=== PATIENT | female | born 1980 ===

== ENCOUNTER 2018-01-19 15:15 | Inpatient (IN) | payer OTHER ==
[~2018-01-19] VITALS: Ht 162.6 cm; Wt 67.6 kg
[2018-02-06] MEDS ORDERED: PRENATAL TABLE1 EAC2 PO (09:29)
== END 2018-02-09 11:04 | DRG 775 ==
LOC: LDR 02-06 08:03 → OB/GYN 02-07 11:52 → LDR 02-07 15:15 → OB/GYN 02-09 11:04
PROC: 10E0XZZ Delivery of Products of Conception, External Approach (ICD-10-PCS; principal; 2018-02-07)
PROC: 0KQM0ZZ Repair Perineum Muscle, Open Approach (ICD-10-PCS; 2018-02-07)
PROC: 0W8NXZZ Division of Female Perineum, External Approach (ICD-10-PCS; 2018-02-07)
PROC: 3E0P7VZ Introduction of Hormone into Female Reproductive, Via Natural or Artificial Opening (ICD-10-PCS; 2018-02-07)
PROC: 3E033VJ Introduction of Other Hormone into Peripheral Vein, Percutaneous Approach (ICD-10-PCS; 2018-02-07)
PROC: 4A033R1 Measurement of Arterial Saturation, Peripheral, Percutaneous Approach (ICD-10-PCS; 2018-02-07)
PROC: 4A1HXCZ Monitoring of Products of Conception, Cardiac Rate, External Approach (ICD-10-PCS; 2018-02-07)
DX: O70.1 Second degree perineal laceration during delivery (principal); Z37.0 Single live birth; O99.824 Streptococcus B carrier state complicating childbirth; Z3A.39 39 weeks gestation of pregnancy

== ENCOUNTER 2018-01-26 14:51 | Outpatient (CLI) | payer OTHER | END 2018-01-26 16:00 | disposition home or self-care (01) | LOC: NST 14:51 | DX: Z34.83 Encounter for supervision of other normal pregnancy, third trimester (principal) ==

== ENCOUNTER 2018-02-02 14:01 | Outpatient (CLI) | payer OTHER | END 2018-02-02 16:38 | disposition home or self-care (01) | LOC: NST 14:01 | DX: Z34.83 Encounter for supervision of other normal pregnancy, third trimester (principal) ==

== ENCOUNTER 2023-01-27 14:16 | Outpatient (CLI) | payer OTHER ==
[~2023-01-27 14:16] MED LIST: PRENATAL TABLE1 EAC2 PO
== END 2023-01-27 15:46 | disposition home or self-care (01) ==
LOC: NST 14:16
PROVIDERS: ATTEND Obstetrics & Gynecology Maternal & Fetal Medicine
DX: Z34.83 Encounter for supervision of other normal pregnancy, third trimester (principal)

== ENCOUNTER 2023-02-11 14:10 | Outpatient (CLI) | payer OTHER | END 2023-02-11 15:39 | disposition home or self-care (01) | LOC: NST 14:10 | PROVIDERS: ATTEND Obstetrics & Gynecology Maternal & Fetal Medicine | DX: Z34.83 Encounter for supervision of other normal pregnancy, third trimester (principal) ==

== ENCOUNTER 2023-02-26 14:11 | Outpatient (CLI) | payer OTHER | END 2023-02-26 14:53 | disposition home or self-care (01) | LOC: NST 14:11 | PROVIDERS: ATTEND Obstetrics & Gynecology Maternal & Fetal Medicine | DX: Z34.83 Encounter for supervision of other normal pregnancy, third trimester (principal) ==

== ENCOUNTER 2023-03-11 13:48 | Outpatient (CLI) | payer OTHER | END 2023-03-11 15:21 | disposition home or self-care (01) | LOC: NST 13:48 | PROVIDERS: ATTEND Obstetrics & Gynecology Maternal & Fetal Medicine | DX: Z34.83 Encounter for supervision of other normal pregnancy, third trimester (principal) ==

== ENCOUNTER 2023-03-24 09:46 | Outpatient (CLI) | payer OTHER | END 2023-03-24 10:36 | disposition home or self-care (01) | LOC: NST 09:46 | PROVIDERS: ATTEND Obstetrics & Gynecology Maternal & Fetal Medicine | DX: Z34.83 Encounter for supervision of other normal pregnancy, third trimester (principal) ==

== ENCOUNTER 2023-03-24 13:57 | Inpatient (IN) | payer OTHER ==
[~2023-03-24] VITALS: Ht 160 cm; Wt 75.7 kg
[2023-03-25] MEDS ORDERED: FOLIC ACID0.8 M1 PO (16:39)
[2023-03-25] MEDS ORDERED: PRENATAL TABLE1 EAC1 PO (16:39)
[2023-03-25] MEDS ORDERED: PROPANOLOL PO (16:41)
[2023-03-25] MEDS ORDERED: PTU PO (16:42)
== END 2023-03-28 16:44 | disposition home or self-care (01) | DRG 785 ==
LOC: OB/GYN 03-25 13:01 → LDR 03-25 15:19 → OB/GYN 03-26 19:17
PROVIDERS: ADMIT Obstetrics & Gynecology Maternal & Fetal Medicine; ATTEND Obstetrics & Gynecology Maternal & Fetal Medicine
PROC: 4A1HXCZ Monitoring of Products of Conception, Cardiac Rate, External Approach (ICD-10-PCS; 2023-03-25)
PROC: 3E0P7VZ Introduction of Hormone into Female Reproductive, Via Natural or Artificial Opening (ICD-10-PCS; 2023-03-25)
PROC: 0UB70ZZ Excision of Bilateral Fallopian Tubes, Open Approach (ICD-10-PCS; 2023-03-26)
PROC: 3E033VJ Introduction of Other Hormone into Peripheral Vein, Percutaneous Approach (ICD-10-PCS; 2023-03-26)
PROC: 10D00Z1 Extraction of Products of Conception, Low, Open Approach (ICD-10-PCS; principal; 2023-03-26 16:00)
DX: O62.1 Secondary uterine inertia (principal); O99.284 Endocrine, nutritional and metabolic diseases complicating childbirth; E05.80 Other thyrotoxicosis without thyrotoxic crisis or storm; Z3A.37 37 weeks gestation of pregnancy; Z37.0 Single live birth; Z30.2 Encounter for sterilization; Z20.822 Contact with and (suspected) exposure to COVID-19